=== PATIENT | female | born 1960 | race Hispanic/Latino ===

== ENCOUNTER 2019-04-30 13:49 | Emergency (ER) | payer OTHER ==
[~2019-04-30 13:49] MED LIST: ACET1TAB12 PO; ASPI-555 PO; CARV6.25 PO; HUM10VIA SQ; HYDR25TA PO; IBUP-2070 PO; LISI40TA4 PO; MAGN400T8 PO; MELO-108 PO; METF-446 PO; OMEG100014 PO; OMEP40CA13 PO; OXYBUTYNIN PO; PIOG30TA70 PO; PRAS1TAB3 PO; PRAV40TA3 PO
[2019-04-30] MEDS ORDERED: DIAZEPAM 5 MG TABLET ONE (14:14)
[2019-04-30] MEDS ORDERED: KETOROLAC TROMETHAMINE 60 MG/2 ML VIAL ONE (14:14)
== END 2019-04-30 15:25 | disposition home or self-care (01) ==
LOC: EDH 13:49
DX: S16.1XXA Strain of muscle, fascia and tendon at neck level, initial encounter (principal); I10 Essential (primary) hypertension; E78.00 Pure hypercholesterolemia, unspecified; E11.9 Type 2 diabetes mellitus without complications; Z90.49 Acquired absence of other specified parts of digestive tract; Z90.710 Acquired absence of both cervix and uterus; Z98.890 Other specified postprocedural states; V49.88XA Car occupant (driver) (passenger) injured in other specified transport accidents, initial encounter; Y93.19 Activity, other involving water and watercraft; Y92.488 Other paved roadways as the place of occurrence of the external cause; Y99.8 Other external cause status
CPT/HCPCS: 72125; 96372; 99284; J1885

== ENCOUNTER → 2020-02-29 | Outpatient (CLI) | payer OTHER ==
[~2020-02-29] MED LIST changes: -ASPI-555 PO; +ASPI-556 PO
== END | disposition home or self-care (01) ==
LOC: LAB 14:41
PROVIDERS: ATTEND Family Medicine
DX: N39.0 Urinary tract infection, site not specified (principal)
CPT/HCPCS: 87077; 87088; 87186

== ENCOUNTER → 2025-02-15 | Outpatient (CLI) | payer OTHER ==
[~2025-02-15] MED LIST changes: +IBUP-1492 PO; -IBUP-2070 PO; +LISI40TA15 PO; -LISI40TA4 PO; +MAGN400T56 PO; -MAGN400T8 PO; -OMEP40CA13 PO; +OMEP40CA21 PO; -PRAV40TA3 PO; +PRAV40TA62 PO
--- NOTE | 2025-02-15 18:40 | HMCIMG ---
EXAM: XR LT Ankle, 3 Views. CLINICAL HISTORY: 64-year-old female with pain in the left ankle and joints of the left foot. COMPARISON: None provided. FINDINGS: BONES: Fixation hardware of the distal fibula. JOINTS: No dislocation. The joint spaces are normal. SOFT TISSUES: The soft tissues are unremarkable. IMPRESSION: 1. No acute osseous abnormality. 2. Fixation hardware of the distal fibula. /[place]
--- NOTE | 2025-02-16 07:20 | HMCIMG ---
EXAM: CR Left Foot, 3 views. CLINICAL HISTORY: Pain. COMPARISON: None provided. FINDINGS: Radio-opaque implant is noted in distal fibula. Bony calcaneal spur is noted. Generalized osteopenia is seen. No acute fracture or aggressive appearing osseous lesion. Joint spaces are within normal limits. The soft tissues are unremarkable. IMPRESSION: No acute osseous abnormality. Radio-opaque implant is noted in distal fibula. Bony calcaneal spur is noted. Generalized osteopenia is seen. /[place]
== END | disposition home or self-care (01) ==
LOC: RAH 13:27
PROVIDERS: ATTEND Nurse Practitioner Family
DX: M77.32 Calcaneal spur, left foot (principal); M85.872 Other specified disorders of bone density and structure, left ankle and foot; M25.572 Pain in left ankle and joints of left foot; Z96.698 Presence of other orthopedic joint implants
CPT/HCPCS: 73610; 73630